=== PATIENT | female | born 2000 | race Two or more races ===

== ENCOUNTER 2022-04-08 19:42 | Inpatient (IN) | payer OTHER ==
[~2022-04-08] VITALS: Ht 160 cm; Wt 89.8 kg
[2022-04-08] MEDS ORDERED: PRENATAL TABLE1 EAC3 PO (22:30)
== END 2022-04-10 13:52 | disposition home or self-care (01) | DRG 807 ==
LOC: LDR 19:42 → OB/GYN 19:42
PROVIDERS: ADMIT Obstetrics & Gynecology Obstetrics; ATTEND Obstetrics & Gynecology Obstetrics
PROC: 10E0XZZ Delivery of Products of Conception, External Approach (ICD-10-PCS; principal; 2022-04-08)
PROC: 4A1HXCZ Monitoring of Products of Conception, Cardiac Rate, External Approach (ICD-10-PCS; 2022-04-08)
DX: O80 Encounter for full-term uncomplicated delivery (principal); Z37.0 Single live birth; Z3A.37 37 weeks gestation of pregnancy; Z20.822 Contact with and (suspected) exposure to COVID-19